=== PATIENT | female | born 1975 | race American Indian/Alaskan Native ===

== ENCOUNTER 2019-11-02 16:20 | Emergency (ER) | payer SELFPAY ==
[2019-11-02 17:45] VITALS: BP 135/84
--- NOTE | 2019-11-02 17:59 | Emergency Department Report ---
- General Chief Complaint: Upper Respiratory Infection Stated Complaint: FLU SYM/VOMIT/CHILLS Time Seen by Provider: 11/02/19 17:55 Source: patient Mode of arrival: Ambulatory Limitations: No Limitations - History of Present Illness Initial Comments: pt is a 44 yo female who presents to the ED with c/o flu like symptoms that began two days ago. she has associated dry cough, rhinorrhea, N/V/D, body aches, fever. she denies any CP, abdominal pain, SOB. PMHx PUD. allergy: PCN, bactrim, vicodin. she states she has multiple sick contacts with the flu. she states her LNMP 10/18/19. - Related Data Previous Rx's Medication Instructions Recorded Last Taken Type HYDROcodone/APAP 5-325 [[place] 1 - 2 each PO Q6HR PRN #14 tablet 08/14/16 Unknown Rx 5/325] Promethazine [Phenergan TAB] 25 mg PO Q6HR PRN #20 tab 08/14/16 Unknown Rx Promethazine [Phenergan] 25 mg MS Q6HR PRN #10 supp.rect 08/14/16 Unknown Rx oxyCODONE /ACETAMINOPHEN [Percocet 1 - 2 tab PO Q6HR PRN #7 tablet 08/14/16 Unknown Rx 5/325] Oseltamivir [Tamiflu] 75 mg PO BID 5 Days #10 cap 11/02/19 Unknown Rx Allergies Allergy/AdvReac Type Severity Reaction Status Date / Time Penicillins Allergy Unknown Verified 08/13/16 17:14 iodine AdvReac Angioedema Verified 08/13/16 17:14 nalbuphine HCl [From Nubain] AdvReac Angioedema Verified 08/13/16 17:14 shellfish derived AdvReac Angioedema Verified 08/13/16 17:14 ED Review of Systems ROS: Stated complaint: FLU SYM/VOMIT/CHILLS Other details as noted in HPI Comment: All other systems reviewed and negative ED Past Medical Hx - Past Medical History Previous Medical History?: Yes Additional medical history: "stomach ulcers". colitis - Surgical History Past Surgical History?: Yes Hx Cholecystectomy: Yes Additional Surgical History: 2001 - Social History Smoking Status: Never Smoker Substance Use Type: None - Medications Home Medications: Home Medications Medication Instructions Recorded Confirmed Last Taken Type HYDROcodone/APAP 5-325 [[place] 1 - 2 each PO Q6HR PRN #14 tablet 08/14/16 Unknown Rx 5/325] Promethazine [Phenergan TAB] 25 mg PO Q6HR PRN #20 tab 08/14/16 Unknown Rx Promethazine [Phenergan] 25 mg MS Q6HR PRN #10 supp.rect 08/14/16 Unknown Rx oxyCODONE /ACETAMINOPHEN [Percocet 1 - 2 tab PO Q6HR PRN #7 tablet 08/14/16 Unknown Rx 5/325] Oseltamivir [Tamiflu] 75 mg PO BID 5 Days #10 cap 11/02/19 Unknown Rx ED Physical Exam - General Limitations: No Limitations General appearance: alert, in no apparent distress - Head Head exam: Present: atraumatic, normocephalic - Eye Eye exam: Present: normal appearance - ENT ENT exam: Present: normal orophraynx, mucous membranes moist, TM's normal bilaterally, normal external ear exam, other (clear nasal drainage) - Respiratory Respiratory exam: Present: normal lung sounds bilaterally. Absent: respiratory distress, wheezes, rales, rhonchi, stridor, chest wall tenderness, accessory muscle use, decreased breath sounds, prolonged expiratory - Cardiovascular Cardiovascular Exam: Present: regular rate, normal rhythm, normal heart sounds. Absent: systolic murmur, diastolic murmur, rubs, gallop - GI/Abdominal GI/Abdominal exam: Present: soft, normal bowel sounds. Absent: distended, tenderness, guarding, rebound, rigid - Neurological Exam Neurological exam: Present: alert, oriented X3 - Psychiatric Psychiatric exam: Present: normal affect, normal mood - Skin Skin exam: Present: warm, dry, intact ED Course Vital Signs 11/02/19 17:43 Temperature 98.4 F Pulse Rate 84 Respiratory 18 Rate Blood Pressure 135/84 O2 Sat by Pulse 96 Oximetry ED Medical Decision Making - Medical Decision Making pt is a 44 yo female who presents to the ED with c/o flu like symptoms that began two days ago. she has associated dry cough, rhinorrhea, N/V/D, body aches, fever. she denies any CP, abdominal pain, SOB. PMHx PUD. allergy: PCN, bactrim, vicodin. she states she has multiple sick contacts with the flu. she states her LNMP 10/18/19. vitals are normal. Patient has clinical signs and symptoms of influenza and has had sick contacts with the flu. Patient will be given prescription for Tamiflu because she is within the 48-hour range. advised pt please take medication as prescribed. increase your fluid intake over the next several days. may take tylenol or ibuprofen every 4 hours as needed for fever or body aches. may take over the counter cough relief medication. follow up with a primary care doctor in the next 2-3 days. return to the emergency room for any new or worsening symptoms . - Differential Diagnosis influenza, PNA, URI, brochitis, viral syndrome Critical care attestation.: If time is entered above; I have spent that time in minutes in the direct care of this critically ill patient, excluding procedure time. ED Disposition Clinical Impression: Influenza Disposition: DC-01 TO HOME OR SELFCARE Is pt being admited?: No Does the pt Need Aspirin: No Condition: Stable Instructions: Influenza (ED) Additional Instructions: please take medication as prescribed. increase your fluid intake over the next several days. may take tylenol or ibuprofen every 4 hours as needed for fever or body aches. may take over the counter cough relief medication. follow up with a primary care doctor in the next 2-3 days. return to the emergency room for any new or worsening symptoms . Prescriptions: Oseltamivir [Tamiflu] 75 mg PO BID 5 Days #10 cap Referrals: TRAY VERNON MD [Staff Physician] - 2-3 Days [facility] [Outside] - 2-3 Days [facility] [Outside] - 2-3 Days Forms: Work/School Release Form(ED) Time of Disposition: 17:57 Print Language: ROMANSH
== END 2019-11-02 18:07 | disposition home or self-care (01) ==
LOC: ED 16:20
DX: J11.1 Influenza due to unidentified influenza virus with other respiratory manifestations (principal); Z90.49 Acquired absence of other specified parts of digestive tract; Z98.890 Other specified postprocedural states; Z79.899 Other long term (current) drug therapy; Z88.0 Allergy status to penicillin; Z91.013 Allergy to seafood; Z88.8 Allergy status to other drugs, medicaments and biological substances
CPT/HCPCS: 99282